=== PATIENT | female | born 1955 | race Caucasian/White ===

== ENCOUNTER 2020-10-15 18:02 | Observation (INO) | payer MEDICARE, OTHER ==
[~2020-10-15] VITALS: Ht 154.9 cm; Wt 65.8 kg
[2020-10-15 18:03] VITALS: BP 160/94
[2020-10-15 18:53] LABS: BASOPHILS % (AUTO) 0.6 % (0.0-5.0); EOSINOPHILS % (AUTO) 2.4 % (0.0-8.0); HEMATOCRIT 40.6 % (36-48); MEAN CORPUSCULAR HEMOGLOBIN 31.5 pg (27.0-33.0); MEAN CORPUSCULAR HGB CONC 33.5 g/dL (32.0-36.0); MONOCYTES % (AUTO) 9.7 % (3.0-13.0); PLATELET COUNT (AUTO) 281 K/uL (130-400); RED BLOOD CELL COUNT(AUTO) 4.32 MIL/uL (4.00-5.50); RED CELL DISTRIBUTION WIDTH 14.5 % (11.0-15.5); WHITE BLOOD COUNT (AUTO) 7.1 K/uL (4.8-10.8)
[2020-10-15 19:04] LABS: CREATININE 0.9 mg/dL (0.5-1.5); POTASSIUM 3.8 mmol/L (3.5-5.1)
[2020-10-15 19:05] LABS: INR 0.99 (0.85-1.15); PROTHROMBIN TIME 10.8 SEC (9.6-11.6)
[2020-10-15 19:13] LABS: BILIRUBIN,TOTAL 0.3 mg/dL (0.2-1.0); MAGNESIUM 2.1 mg/dL (1.80-2.40); TOTAL PROTEIN, SERUM 7.2 g/dL (6.0-8.3)
[2020-10-15 19:17] LABS: B-TYPE NATRIURETIC PEPTIDE 56 pg/mL (0-100)
[2020-10-15] MEDS ORDERED: NITROGLYCERIN 1GM OINT 1 INCH/1GM TD ONE (20:00)
[2020-10-15] MEDS ORDERED: ASPIRIN 325MG TAB PO ONE (20:00)
[2020-10-15 20:26] VITALS: BP 153/92
[2020-10-15] MEDS ORDERED: NITROGLYCERIN 0.4 MG SL TAB SL PRN (20:30)
[2020-10-15] MEDS ORDERED: ONDANSETRON 4MG INJ IV PRN (20:30)
[2020-10-15] MEDS ORDERED: ACETAMINOPHEN 325 MG TAB PO PRN ×2 (20:30)
[2020-10-15] MEDS ORDERED: FAMOTIDINE 20MG TAB PO SCH (21:00)
[2020-10-15] MEDS ORDERED: ATORVASTATIN 40 MG TABLET PO SCH (21:00)
[2020-10-15 22:16] LABS: CREATINE KINASE, TOTAL 93 U/L (21-232); MYOGLOBIN 40 ng/mL (10-92); TROPONIN I < 0.04 ng/mL (0.00-0.06)
[2020-10-16 00:04] VITALS: BP 108/66
[2020-10-16 04:12] VITALS: BP 129/78
[2020-10-16 05:22] LABS: BASOPHILS % (AUTO) 0.6 % (0.0-5.0); LYMPHOCYTES % (AUTO) 23.1 % (21.0-51.0); MEAN CORPUSCULAR HEMOGLOBIN 31.8 pg (27.0-33.0); MEAN CORPUSCULAR HGB CONC 33.4 g/dL (32.0-36.0); MEAN CORPUSCULAR VOLUME 95.2 fL (79-99); MONOCYTES % (AUTO) 8.7 % (3.0-13.0); NEUTROPHILS % (AUTO) 65.3 % (40.0-77.0); PLATELET COUNT (AUTO) 258 K/uL (130-400); RED BLOOD CELL COUNT(AUTO) 3.99 MIL/uL (4.00-5.50); RED CELL DISTRIBUTION WIDTH 14.5 % (11.0-15.5); WHITE BLOOD COUNT (AUTO) 6.6 K/uL (4.8-10.8)
[2020-10-16 05:55] LABS: ALANINE AMINOTRANSFERASE 27 U/L (12-78); ALBUMIN 3.5 g/dL (3.5-5.0); ASPARTATE AMINOTRANSFERASE 21 U/L (10-37); BILIRUBIN,TOTAL 0.4 mg/dL (0.2-1.0); CARBON DIOXIDE 31 mmol/L (21-32); CHLORIDE 107 mmol/L (101-111); CREATINE KINASE, TOTAL 60 U/L (21-232); CREATININE 0.9 mg/dL (0.5-1.5); GLOMERULAR FILTR. RATE CALC 67 mL/min (>60); GLUCOSE,RANDOM 120 mg/dL (70-105); MYOGLOBIN 36 ng/mL (10-92); POTASSIUM 3.8 mmol/L (3.5-5.1); SODIUM SERUM 145 mmol/L (136-145); TOTAL PROTEIN, SERUM 6.3 g/dL (6.0-8.3); TROPONIN I < 0.04 ng/mL (0.00-0.06); UREA NITROGEN, BLOOD 18 mg/dL (7-18)
[2020-10-16] MEDS ORDERED: MAG/ALUM/SIMETH 30 ML UDCUP PO SCH (08:30)
[2020-10-16] MEDS ORDERED: ONDANSETRON 4MG INJ IVP PRN (08:30)
[2020-10-16] MEDS ORDERED: 0.9%NACL 1000ML 1,000 ML IV ONE (08:30)
[2020-10-16] MEDS ORDERED: PANTOPRAZOLE 40 MG TAB DR PO SCH (08:38)
[2020-10-16] MEDS ORDERED: ENOXAPARIN SODIUM 40 MG/0.4 ML SYRINGE SQ SCH (09:00)
[2020-10-16] MEDS ORDERED: ASPIRIN 81 MG EC TAB PO SCH (09:00)
[2020-10-16] MEDS ORDERED: METOPROLOL TARTRATE 25 MG TAB PO SCH ×2 (09:00→21:00)
[2020-10-16 09:06] LABS: HEMOGLOBIN A1C 5.8 % (4.0-6.0)
[2020-10-16 09:11] VITALS: BP 135/78
[2020-10-16 10:20] LABS: CREATINE KINASE, TOTAL 58 U/L (21-232); MYOGLOBIN 47 ng/mL (10-92); TROPONIN I < 0.04 ng/mL (0.00-0.06)
[2020-10-16 12:40] VITALS: BP 132/72
[2020-10-16 18:54] VITALS: BP 132/72
[2020-10-16 20:24] VITALS: BP 138/78
== END 2020-10-16 20:30 | disposition left against medical advice (07) ==
LOC: EDH 18:16 → EDHIP 19:45
PROVIDERS: ADMIT Internal Medicine; ATTEND Internal Medicine
DX: R07.89 Other chest pain (principal); E78.5 Hyperlipidemia, unspecified; E11.9 Type 2 diabetes mellitus without complications; R94.31 Abnormal electrocardiogram [ECG] [EKG]; Z90.711 Acquired absence of uterus with remaining cervical stump; Z87.891 Personal history of nicotine dependence; Z85.72 Personal history of non-Hodgkin lymphomas
CPT/HCPCS: 36415 ×2; 71045; 80053 ×2; 80061; 82550 ×4; 83036; 83735 ×3; 83874 ×4; 83880; 84484 ×4; 85025 ×2; 85378; 85610; 93005 ×2; 93970; 96372; 96374; 99285; G0378 ×24; J1650; J2405